=== PATIENT | female | born 1995 | race Caucasian/White ===

== ENCOUNTER 2018-01-06 10:55 | Inpatient (IN) | payer OTHER ==
[2018-01-06 11:26] VITALS: BMI 23.0
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
[2018-01-06] MEDS ORDERED: MAGNESIUM CITRATE 300 ML BOTTLE PO PRN (11:59)
[2018-01-06] MEDS ORDERED: LOPERAMIDE HCL 2 MG CAPSULE PO PRN (11:59)
[2018-01-06] MEDS ORDERED: MAGNESIUM HYDROX 2400MG/30ML ORAL SUSPENSION 30 ML CUP PO PRN (11:59)
[2018-01-06] MEDS ORDERED: guaiFENesin/D-METHORPHAN HB 10 ML UNIT-DOSE CUPS PO PRN (11:59)
[2018-01-06] MEDS ORDERED: MAG HYDROX/AL HYDROX/SIMETH 30 ML UNIT-DOSE CUP PO PRN (11:59)
[2018-01-06] MEDS ORDERED: IBUPROFEN 400 MG TABLET (FP) PO PRN (11:59)
[2018-01-06] MEDS ORDERED: MENTHOL/PHENOL 1 EACH UD MM PRN (11:59)
[2018-01-06] MEDS ORDERED: ACETAMINOPHEN 325 MG TABLET (FP) PO PRN (11:59)
[2018-01-06] MEDS ORDERED: chlordiazePOXIDE HCL 25 MG CAPSULE PO PRN (11:59)
[2018-01-06] MEDS ORDERED: P-EPHED 60MG/TRIPROLIDI 2.5MG TABLET PO PRN (11:59)
[2018-01-06] MEDS ORDERED: ALBUTEROL SO4 0.083% IH SOL 2.5 MG/3 ML VIAL.NEB. NEB PRN (12:01)
[2018-01-06] MEDS ORDERED: METHADONE HCL 10 MG TABLET (FOR DETOX USE ONLY) PO ONE ×2 (14:10→23:00)
[2018-01-06] MEDS ORDERED: chlordiazePOXIDE HCL 25 MG CAPSULE PO SCH (17:00)
--- NOTE | 2018-01-06 17:50 | PN ---
BHS Progress Note Note: pt met w/ psychiatry and requested change to Valium . Per psychiatry , change of meds recommended . d/w Psychiatrist at length re : risk vs benefit . Pt agreeable to stay in tx w/ change of meds .
--- NOTE | 2018-01-06 18:04 | CONSULT ---
[facility] Psychiatric Consult - Data Date of interview: 01/06/18 Admission source: [facility] Identifying data: First admission to [facility] for this 22 y/o female seeking detoxification treatment on for heroin,cocaine and benzodiazepine dependence (xanax). Patient is single without dependents, domiciled,self-sufficient and employed as a dancer (self report). Substance Abuse History: Discussed with the patient in this session. Ms Guevara reports an enduring history of heroin abuse (intravenous use), cocaine and xanax. Daily use for many years. Past history of two overdoses (treated with naloxone). Episodic use of crystal methamphetamine, phencyclidine, cannabis and fentanyl. Patient smokes one pack of cigarettes daily. Medical History: Bronchial asthma (history of intubation). Psychiatric History: No reported history of psychiatric hospitalizations. Patient indicates prior contacts with psychiatrists in the past. Has " no idea " about psychiatric diagnoses but she informs that " they prescribed me adderall ,ambien,klonopin and xanax but, except for xanax, I stopped taking them ". History of chronic non-adherence to referrals for psychiatric OPD care. Ms Guevara denies history of suicide attempts. Physical/Sexual Abuse/Trauma History: Patient declines to discuss this domain, in this interview. Additional Comment: Urine Drug Screen Results: [place]ADE[place]-Cocaine, OPI-Opiates, BZO- Benzodiazepines, OXY-Oxycodone, FEN-Fentanyl. Noted. Mental Status Exam - Mental Status Exam Alert and Oriented to: Time, Place, Person Cognitive Function: Good Patient Appearance: Well Groomed (medium height, thin habitus, appears stated age, pierced right nostril, loud make-up, flamboyant hairdo) Mood: Angry, Nervous, Anxious, Irritable Affect: Labile Patient Behavior: Inappropriate (on admission : as evidenced by staff report of use of profanities, yelling, shouting and pressuring nurses for medications), Fatigued, Impulsive, Talkative, Cooperative Speech Pattern: Clear, Excessive Voice Loudness: Moderately Loud (at the beginning of this interview ; toned down as examination went on) Thought Process: Goal Oriented Thought Disorder: Not Present Hallucinations: Denies Suicidal Ideation: Denies Homicidal Ideation: Denies Insight/Judgement: Poor Sleep: Poorly (patient requested trazodone because of past experience of improved sleep on that drug), Difficulty falling asleep Appetite: Good Muscle strength/Tone: Normal Gait/Station: Normal Psychiatric Findings - Problem List ([place] 1, 2,3) (1) Alcohol dependence Current Visit: Yes Status: Acute Qualifiers: Substance use status: uncomplicated Qualified Code(s): F10.20 - Alcohol dependence, uncomplicated (2) Alcohol withdrawal Current Visit: Yes Status: Acute Qualifiers: Complication of substance-induced condition: uncomplicated Qualified Code(s ): F10.230 - Alcohol dependence with withdrawal, uncomplicated (3) Cocaine dependence Current Visit: Yes Status: Acute Qualifiers: Substance use status: uncomplicated Qualified Code(s): F14.20 - Cocaine dependence, uncomplicated (4) Opioid withdrawal Current Visit: Yes Status: Acute (5) Sedative withdrawal Current Visit: Yes Status: Acute (6) Nicotine dependence Current Visit: Yes Status: Acute Qualifiers: Nicotine product type: cigarettes Substance use status: uncomplicated Qualified Code(s): F17.210 - Nicotine dependence, cigarettes, uncomplicated (7) Substance induced mood disorder Current Visit: Yes Status: Acute (8) Personality disorder, unspecified Current Visit: Yes Status: Chronic (9) Insomnia Current Visit: Yes Status: Acute - Initial Treatment Plan Initial Treatment Plan: Psychoeducation. Details of treatment plan : discussed with the patient. Unit rules + regulations are revisited with the patient as well. Ms Guevara is NOT psychotic. Currently observed outbursts simply point towards personality/character disorder - likely antisocial/borderline/ histrionic - which should be addressed with firm limit-setting + consistent redirections from the staff. Bipolar Disorder is strongly suspected (more history and collateral information still needed to corroborate that impression) . In the meantime, it is advisable to accomodate the patient's preference for diazepam instead of chlordiazepoxide (not well tolerated by the patient, as per self report). Sleep hygiene discussed. Trazodone 50 mg po hs : ordered at patient's specific request. Side effects/benefits reviewed. Consent (verbal) obtained. Detoxification initiated (case discussed, in person, with medical attending, Dr Grey). Psychotherapy : individual, supportive, group, recreational and cognitive/behavioral). Patient is encouraged to attend sessions and refrain from acting out behaviors (yelling,screaming,using profanities,fraternizing with males,gathering in cliques). Attendance to AA/NA meetings : strongly recommended to the patient. Relapse prevention revisited : patient is informed of the therapeutic virtues of rehabilitation and benefits of naltrexone (outpatient setting). Social work team will explore psychosocial issues (referral to an OPD psychiatrist is advised). Orientation to the unit ( this is her first admission to [facility]). Ms Guevara has expressed her agreement to this plan of care. Observation.
[2018-01-06] MEDS ORDERED: diazePAM 5 MG TABLET PO ONE (18:15)
[2018-01-06 18:22] LABS: URINE APPEARANCE SLCLOUDY; URINE BILIRUBIN NEGATIVE (<2.0 mg/dL); URINE COLOR YELLOW; URINE GLUCOSE (UA) NEGATIVE (NEGATIVE); URINE KETONE NEGATIVE (NEGATIVE); URINE LEUK ESTERASE 1+ (NEGATIVE); URINE NITRITE NEGATIVE (NEGATIVE); URINE PROTEIN 1+ (NEGATIVE); URINE UROBILINOGEN NEGATIVE mg/dL (0.2-1.0)
[2018-01-06 18:34] LABS: EPI CELLS MANY /HPF (FEW); URINE BACTERIA RARE /hpf (NONE SEEN); URINE MUCUS FEW
[2018-01-06] MEDS: traZODone HCL 50 MG TABLET (FP) PO SCH (22:07)
[2018-01-06] MEDS: diazePAM 5 MG TABLET PO SCH (22:07)
[2018-01-06] MEDS: THIAMINE HCL 100 MG TABLET (FP) PO SCH (22:07)
[2018-01-06] MEDS: MELATONIN 5 MG TABLETS PO PRN (22:08)
[2018-01-07] MEDS: diazePAM 5 MG TABLET PO PRN ×3 (00:50→17:34)
[2018-01-07] MEDS: diazePAM 5 MG TABLET PO SCH ×3 (06:02→22:52)
[2018-01-07] MEDS ORDERED: METHADONE HCL 10 MG TABLET (FOR DETOX USE ONLY) PO SCH (10:00)
[2018-01-07] MEDS: PRENATAL VITAMINS W/ FOLIC ACID TABLET (FP) PO SCH (10:12)
[2018-01-07 11:06] LABS: HEMATOCRIT 43.9 % (32.4-45.2); HEMOGLOBIN 14.1 GM/dL (10.7-15.3); MEAN CELL VOLUME 87.4 fl (80-96); MEAN PLT VOLUME 8.4 fl (7.5-11.1); PLATELET COUNT 300 K/MM3 (134-434); RBC 5.02 M/mm3 (3.60-5.2); WHITE BLOOD COUNT 7.2 K/mm3 (4.0-10.0)
[2018-01-07 11:33] LABS: ALBUMIN 3.6 g/dl (3.4-5.0); ALK PHOS 73 U/L (45-117); ANION GAP 8 MMOL/L (8-16); BILIRUBIN,TOTAL 0.3 mg/dL (0.2-1); BLOOD UREA NITROGEN 10 mg/dL (7-18); CALCIUM 8.8 mg/dL (8.5-10.1); CHLORIDE 107 mmol/L (98-107); CO2 26 mmol/L (21-32); CREATININE 0.9 mg/dL (0.55-1.3); GLUCOSE,RANDOM 76 mg/dL (74-106); POTASSIUM 4.3 mmol/L (3.5-5.1); SGOT/AST 15 U/L (15-37); SGPT/ALT 22 U/L (13-61); SODIUM 140 mmol/L (136-145); TOT PROT 7.7 g/dl (6.4-8.2)
--- NOTE | 2018-01-07 15:55 | PN ---
S CIWA - CIWA Score Nausea/Vomitin Muscle Tremors: 2 Anxiety: 5 Agitation: 5 Paroxysmal Sweats: 2 Orientation: 0-Oriented Tacttile Disturbances: 0-None Auditory Disturbances: 0-None Visual Disturbances: 0-None Headache: 0-None Present CIWA-Ar Total Score: 16 BHS COWS - Scale Resting Pulse: 0= [place] 80 or Below Sweatin= Chills/Flushing Restless Observation: 3= Extraneous Movement Pupil Size: 0= Normal to Room Light Bone or Joint Aches: 2= Severe Diffuse Aches Runny Nose/ Eye Tearin= Nasal Congestion GI Upset > 30mins: 0= None Tremor Observation of Outstretched Hands: 1= Tremor [place], Not Seen Yawning Observation: 1= 1-2x During Session Anxiety or Irritability: 2=Irritable/Anxious Goose Flesh Skin: 0=Smooth Skin COWS Score: 11 [facility] Progress Note (SOAP) Subjective: generalized body pain Objective: 01/07/18 15:53 Anxious restless Vital Signs Temperature 97.8 F 01/07/18 14:19 Pulse Rate 80 01/07/18 14:19 Respiratory Rate 18 01/07/18 14:19 Blood Pressure 114/59 L 01/07/18 14:19 O2 Sat by Pulse Oximetry (%) Laboratory Last Values WBC 7.2 K/mm3 (4.0-10.0) 01/07/18 08:00 RBC 5.02 M/mm3 (3.60-5.2) 01/07/18 08:00 Hgb 14.1 GM/dL (10.7-15.3) 01/07/18 08:00 Hct 43.9 % (32.4-45.2) 01/07/18 08:00 MCV 87.4 fl (80-96) 01/07/18 08:00 MCH 28.0 pg (25.7-33.7) 01/07/18 08:00 MCHC 32.0 g/dl (32.0-36.0) 01/07/18 08:00 RDW 13.0 % (11.6-15.6) 01/07/18 08:00 Plt Count 300 K/MM3 (134-434) 01/07/18 08:00 MPV 8.4 fl (7.5-11.1) 01/07/18 08:00 Sodium 140 mmol/L (136-145) 01/07/18 08:00 Potassium 4.3 mmol/L (3.5-5.1) 01/07/18 08:00 Chloride 107 mmol/L (98-107) 01/07/18 08:00 Carbon Dioxide 26 mmol/L (21-32) 01/07/18 08:00 Anion Gap 8 MMOL/L (8-16) 01/07/18 08:00 BUN 10 mg/dL (7-18) 01/07/18 08:00 Creatinine 0.9 mg/dL (0.55-1.3) 01/07/18 08:00 Creat Clearance w eGFR > 60 (>60) 01/07/18 08:00 Random Glucose 76 mg/dL (74-106) 01/07/18 08:00 Calcium 8.8 mg/dL (8.5-10.1) 01/07/18 08:00 Total Bilirubin 0.3 mg/dL (0.2-1) 01/07/18 08:00 AST 15 U/L (15-37) 01/07/18 08:00 ALT 22 U/L (13-61) 01/07/18 08:00 Alkaline Phosphatase 73 U/L (45-117) 01/07/18 08:00 Total Protein 7.7 g/dl (6.4-8.2) 01/07/18 08:00 Albumin 3.6 g/dl (3.4-5.0) 01/07/18 08:00 Urine Color Yellow 01/06/18 17:55 Urine Appearance Slcloudy 01/06/18 17:55 Urine pH 5.0 (5.0-8.0) 01/06/18 17:55 Ur Specific [place] 1.026 (1.010-1.035) 01/06/18 17:55 Urine Protein 1+ (NEGATIVE) H 01/06/18 17:55 Urine Glucose (UA) Negative (NEGATIVE) 01/06/18 17:55 Urine Ketones Negative (NEGATIVE) 01/06/18 17:55 Urine Blood Negative (NEGATIVE) 01/06/18 17:55 Urine Nitrite Negative (NEGATIVE) 01/06/18 17:55 Urine Bilirubin Negative (<2.0 mg/dL) 01/06/18 17:55 Urine Urobilinogen Negative mg/dL (0.2-1.0) 01/06/18 17:55 Ur Leukocyte Esterase 1+ (NEGATIVE) H 01/06/18 17:55 Urine WBC (Auto) 3 /hpf (3-5) 01/06/18 17:55 Urine RBC (Auto) 2 /hpf (0-3) 01/06/18 17:55 Ur Epithelial Cells Many /HPF (FEW) 01/06/18 17:55 Urine Bacteria Rare /hpf (NONE SEEN) 01/06/18 17:55 Urine Mucus Few 01/06/18 17:55 RPR Titer Nonreactive (NONREACTIVE) 01/07/18 08:00 labs noted Abnormal Urine results Assessment: 01/07/18 15:54 Withdrawal sx Plan: Continue detox Increase hydration Repeat UA
[2018-01-07] MEDS ORDERED: chlordiazePOXIDE HCL 25 MG CAPSULE PO SCH (17:00)
--- NOTE | 2018-01-07 18:11 | EKG ---
Test Reason : Blood Pressure : / mmHG Vent. Rate : 066 BPM Atrial Rate : 066 BPM P-R Int : 132 ms QRS Dur : 098 ms QT Int : 386 ms P-R-T Axes : 036 079 070 degrees QTc Int : 404 ms NORMAL SINUS RHYTHM NORMAL ECG NO PREVIOUS ECGS AVAILABLE Confirmed by PRECIOUS SINCLAIR MD ([id number]) on 01/07/2018 6:11:07 PM Referred By: Confirmed By:PRECIOUS SINCLAIR MD
[2018-01-07] MEDS: THIAMINE HCL 100 MG TABLET (FP) PO SCH (22:52)
[2018-01-07] MEDS: traZODone HCL 50 MG TABLET (FP) PO SCH (22:52)
[2018-01-08] MEDS: diazePAM 5 MG TABLET PO PRN (05:52)
[2018-01-08] MEDS ORDERED: METHADONE HCL 5 MG TABLET (FOR DETOX USE ONLY) PO SCH (10:00)
[2018-01-08 10:29] LABS: URINE APPEARANCE SLCLOUDY; URINE BILIRUBIN NEGATIVE (<2.0 mg/dL); URINE COLOR YELLOW; URINE GLUCOSE (UA) NEGATIVE (NEGATIVE); URINE KETONE NEGATIVE (NEGATIVE); URINE LEUK ESTERASE TRACE (NEGATIVE); URINE NITRITE NEGATIVE (NEGATIVE); URINE PROTEIN NEGATIVE (NEGATIVE); URINE UROBILINOGEN NEGATIVE mg/dL (0.2-1.0)
[2018-01-08] MEDS: diazePAM 5 MG TABLET PO SCH ×2 (10:33→23:04)
[2018-01-08] MEDS: PRENATAL VITAMINS W/ FOLIC ACID TABLET (FP) PO SCH (10:33)
[2018-01-08 10:35] LABS: EPI CELLS MODERATE /HPF (FEW); URINE MUCUS RARE
[2018-01-08] MEDS ORDERED: GABAPENTIN 100 MG CAPSULE (FP) PO ONE (13:57)
--- NOTE | 2018-01-08 14:46 | PN ---
S CIWA - CIWA Score Nausea/Vomitin-No Nausea/No Vomiting Muscle Tremors: 3 Anxiety: 2 Agitation: 2 Paroxysmal Sweats: No Perspiration Orientation: 0-Oriented Tacttile Disturbances: 0-None Auditory Disturbances: 0-None Visual Disturbances: 0-None Headache: 0-None Present CIWA-Ar Total Score: 7 S COWS - Scale Resting Pulse: 0= [place] 80 or Below Sweatin= Chills/Flushing Restless Observation: 0= Sits Still Pupil Size: 0= Normal to Room Light Bone or Joint Aches: 1= Mild Discomfort Runny Nose/ Eye Tearin= None GI Upset > 30mins: 0= None Tremor Observation of Outstretched Hands: 1= Tremor [place], Not Seen Yawning Observation: 0= None Anxiety or Irritability: 1=Feels Anxious/Irritable Goose Flesh Skin: 0=Smooth Skin COWS Score: 4 S Progress Note (SOAP) Subjective: Alert oriented x 3 social in day room with peers in day room [address] patient is able to connect with peers and carry conversation easily patient has good appetitie good eye contact Objective: 01/08/18 14:49 Vital Signs Temperature 97.0 F L 01/08/18 09:44 Pulse Rate 91 H 01/08/18 09:44 Respiratory Rate 18 01/08/18 09:44 Blood Pressure 124/69 01/08/18 09:44 O2 Sat by Pulse Oximetry (%) Laboratory Last Values WBC 7.2 K/mm3 (4.0-10.0) 01/07/18 08:00 RBC 5.02 M/mm3 (3.60-5.2) 01/07/18 08:00 Hgb 14.1 GM/dL (10.7-15.3) 01/07/18 08:00 Hct 43.9 % (32.4-45.2) 01/07/18 08:00 MCV 87.4 fl (80-96) 01/07/18 08:00 MCH 28.0 pg (25.7-33.7) 01/07/18 08:00 MCHC 32.0 g/dl (32.0-36.0) 01/07/18 08:00 RDW 13.0 % (11.6-15.6) 01/07/18 08:00 Plt Count 300 K/MM3 (134-434) 01/07/18 08:00 MPV 8.4 fl (7.5-11.1) 01/07/18 08:00 Sodium 140 mmol/L (136-145) 01/07/18 08:00 Potassium 4.3 mmol/L (3.5-5.1) 01/07/18 08:00 Chloride 107 mmol/L (98-107) 01/07/18 08:00 Carbon Dioxide 26 mmol/L (21-32) 01/07/18 08:00 Anion Gap 8 MMOL/L (8-16) 01/07/18 08:00 BUN 10 mg/dL (7-18) 01/07/18 08:00 Creatinine 0.9 mg/dL (0.55-1.3) 01/07/18 08:00 Creat Clearance w eGFR > 60 (>60) 01/07/18 08:00 Random Glucose 76 mg/dL (74-106) 01/07/18 08:00 Calcium 8.8 mg/dL (8.5-10.1) 01/07/18 08:00 Total Bilirubin 0.3 mg/dL (0.2-1) 01/07/18 08:00 AST 15 U/L (15-37) 01/07/18 08:00 ALT 22 U/L (13-61) 01/07/18 08:00 Alkaline Phosphatase 73 U/L (45-117) 01/07/18 08:00 Total Protein 7.7 g/dl (6.4-8.2) 01/07/18 08:00 Albumin 3.6 g/dl (3.4-5.0) 01/07/18 08:00 Urine Color Yellow 01/08/18 07:30 Urine Appearance Slcloudy 01/08/18 07:30 Urine pH 7.0 (5.0-8.0) D 01/08/18 07:30 Ur Specific [place] 1.018 (1.010-1.035) 01/08/18 07:30 Urine Protein Negative (NEGATIVE) 01/08/18 07:30 Urine Glucose (UA) Negative (NEGATIVE) 01/08/18 07:30 Urine Ketones Negative (NEGATIVE) 01/08/18 07:30 Urine Blood Negative (NEGATIVE) 01/08/18 07:30 Urine Nitrite Negative (NEGATIVE) 01/08/18 07:30 Urine Bilirubin Negative (<2.0 mg/dL) 01/08/18 07:30 Urine Urobilinogen Negative mg/dL (0.2-1.0) 01/08/18 07:30 Ur Leukocyte Esterase Trace (NEGATIVE) 01/08/18 07:30 Urine WBC (Auto) 2 /hpf (3-5) 01/08/18 07:30 Urine RBC (Auto) None /hpf (0-3) 01/08/18 07:30 Ur Epithelial Cells Moderate /HPF (FEW) 01/08/18 07:30 Urine Bacteria Rare /hpf (NONE SEEN) 01/06/18 17:55 Urine Mucus Rare 01/08/18 07:30 RPR Titer Nonreactive (NONREACTIVE) 01/07/18 08:00 lab noted Assessment: 01/08/18 14:50 mild withdrawal sx Plan: medically supervised detox
[2018-01-08] MEDS ORDERED: chlordiazePOXIDE 5 MG CAPSULE PO SCH (17:00)
--- NOTE | 2018-01-08 18:09 | PN ---
S Progress Note Note: Pt transferred to [facility] ED for verbalization of SI. Pt states she is angry, wants a change of her meds and will kill herself if not given. Report given to MD Messer at the ED, pt transported by [facility].
[2018-01-08] MEDS: traZODone HCL 50 MG TABLET (FP) PO SCH (23:04)
[2018-01-08] MEDS: THIAMINE HCL 100 MG TABLET (FP) PO SCH (23:04)
[2018-01-09] MEDS: MELATONIN 5 MG TABLETS PO PRN ×2 (03:11→22:37)
[2018-01-09] MEDS: diazePAM 5 MG TABLET PO PRN ×3 (03:11→15:02)
[2018-01-09] MEDS ORDERED: METHADONE HCL 10 MG TABLET (FOR DETOX USE ONLY) PO SCH (10:00)
[2018-01-09] MEDS: PRENATAL VITAMINS W/ FOLIC ACID TABLET (FP) PO SCH (10:22)
[2018-01-09] MEDS: diazePAM 5 MG TABLET PO SCH ×2 (10:23→22:36)
[2018-01-09] MEDS ORDERED: IBUPROFEN 600 MG TABLET (FP) PO PRN (11:38)
--- NOTE | 2018-01-09 11:45 | PN ---
BHS Progress Note (SOAP) Subjective: achy bones irritable sweats I need my gabapentin psych ordered Objective: 01/09/18 11:44 Vital Signs Temperature 98.1 F 01/09/18 09:45 Pulse Rate 88 01/09/18 09:45 Respiratory Rate 18 01/09/18 09:45 Blood Pressure 134/66 01/09/18 09:45 O2 Sat by Pulse Oximetry (%) aaox3 ambulating no acute distress Assessment: 01/09/18 11:44 withdrawal sx Plan: psych order gabapentin 100mg tid ordered d/c in am
[2018-01-09] MEDS: GABAPENTIN 100 MG CAPSULE (FP) PO SCH ×2 (13:10→22:36)
[2018-01-09] MEDS ORDERED: chlordiazePOXIDE HCL 10 MG CAPSULE PO SCH (17:00)
[2018-01-09] MEDS ORDERED: FLUCONAZOLE 100 MG TABLET (UD) PO ONE (20:25)
--- NOTE | 2018-01-09 20:27 | PN ---
BHS Progress Note Note: c/o yellowish vaginal discharge w/ itching x 2 days. Denies burning or pain w/ urination. Vital Signs 01/09/18 01/09/18 14:32 17:20 Temperature 98.2 F 97.9 F Pulse Rate 82 89 Respiratory 18 18 Rate Blood Pressure 119/69 104/54 L Plan: Diflucan x 1. Follow-up w/ PCP upon discharge.
[2018-01-09] MEDS: THIAMINE HCL 100 MG TABLET (FP) PO SCH (22:35)
[2018-01-09] MEDS: traZODone HCL 50 MG TABLET (FP) PO SCH (22:36)
[2018-01-10] MEDS ORDERED: METHADONE HCL 5 MG TABLET (FOR DETOX USE ONLY) PO SCH (06:00)
[2018-01-10] MEDS: GABAPENTIN 100 MG CAPSULE (FP) PO SCH (06:20)
[2018-01-10 06:37] VITALS: BP 122/71; PULSE 67; TEMP 97.3
[2018-01-10] MEDS ORDERED: diazePAM 5 MG TABLET PO SCH (10:00)
== END 2018-01-10 07:05 | disposition home or self-care (01) | DRG 773 ==
LOC: YASAS 10:55 → Y6N 13:34
PROC: HZ2ZZZZ Detoxification Services for Substance Abuse Treatment (ICD-10-PCS; principal; 2018-01-06)
DX: F11.23 Opioid dependence with withdrawal (principal); F10.230 Alcohol dependence with withdrawal, uncomplicated; F13.230 Sedative, hypnotic or anxiolytic dependence with withdrawal, uncomplicated; F14.20 Cocaine dependence, uncomplicated; F17.210 Nicotine dependence, cigarettes, uncomplicated; F19.24 Other psychoactive substance dependence with psychoactive substance-induced mood disorder; F60.9 Personality disorder, unspecified; R45.851 Suicidal ideations; J45.909 Unspecified asthma, uncomplicated; R82.90 Unspecified abnormal findings in urine; G47.00 Insomnia, unspecified; R01.1 Cardiac murmur, unspecified; N89.8 Other specified noninflammatory disorders of vagina
CPT/HCPCS: 36415; 80053; 81003; 81015; 85027; 86593; 93005; 93010; 94640

== ENCOUNTER 2019-04-09 15:05 | Inpatient (IN) | payer OTHER ==
[2019-04-09 16:33] VITALS: BMI 32.9
--- NOTE | 2019-04-09 17:40 | HP ---
"CIWA Score Nausea/Vomitin-No Nausea/No Vomiting Muscle Tremors: None Anxiety: 4-Mod. Anxious/Guarded Agitation: 2 Paroxysmal Sweats: No Perspiration Orientation: 1-Uncertain about Date Tacttile Disturbances: 1-Very Mild Itch/Numbness Auditory Disturbances: 0-None Visual Disturbances: 2-Mild Sensitivity Headache: 2-Mild CIWA-Ar Total Score: 12 - Admission Criteria OASAS Guidelines: Admission for Medically Managed Detox: Requires at least one of the followin. CIWA greater than 12 2. Seizures within the past 24 hours 3. Delirium tremens within the past 24 hours 4. Hallucinations within the past 24 hours 5. Acute intervention needed for co occurring medical disorder 6. Acute intervention needed for co occurring psychiatric disorder 7. Severe withdrawal that cannot be handled at a lower level of care (continued vomiting, continued diarrhea, abnormal vital signs) requiring intravenous medication and/or fluids 8. Admitting History and Physical - Smoking History Smoking history: Never smoked Have you smoked in the past 12 months: No Aproximately how many cigarettes per day: 10 - Alcohol/Substance Use Hx Alcohol Use: No Admission ROS [facility] Allergies/Adverse Reactions: Allergies Allergy/AdvReac Type Severity Reaction Status Date / Time Penicillins Allergy Severe Hives Verified 04/09/19 16:22 History of Present Illness: This report was requested by: Grace Grey | Reference #: [id number] Others' Prescriptions Patient Name: Flavia Guevara Date: 1995 Address: [address] [place] [address] Sex: Female Rx Written Rx Dispensed Drug Quantity Days Supply Prescriber Name 08/09/2018 08/09/2018 hydrocodone-acetaminophen 5-325 mg tablet 16 3 Kamila Benton pt here requesting detox from etoh and xanax use , current daily use xanax 2-4 sticks /day x 2 mg , +IV use , + re-using needles , + abscess most recently now L elbow started taking someone elses's Clindamycin 4 days ago , states swelling now much better . MMTP -25 mg ( unverified as of time of admission ) luis angel : 0.00 Etoh use :1/2 bottle /day , reports tremors if not drinking , denies seizures , + blackouts , denies falls / injuries to self while intoxicated . does not drive . tobacco : 1/2 ppd , denies NRT . PMHX : asthma since childhood , hospitalized ,intubated 2 years ago in medically induced coma in winter 2015 at [facility] . PShx : denies Psych : depression , anxiety , bipolar d/o , ADD upt neg LMP Mar 2019 Exam Limitations: Clinical Condition - Ebola screening Have you traveled outside of the country in the last 21 days: No (N) Have you had contact with anyone from an Ebola affected area: No Do you have a fever: No - Review of Systems Constitutional: No Symptoms Reported EENT: reports: No Symptoms Reported Respiratory: reports: See HPI Cardiac: reports: No Symptoms Reported GI: reports: No Symptoms Reported : reports: Frequency Musculoskeletal: reports: Back Pain (chronic) Integumentary: reports: See HPI, Erythema (left forearm/ elbow , right leg) Neuro: reports: See HPI, Headache, Unsteady Gait Endocrine: reports: No Symptoms Reported Psychiatric: reports: Agitated, Anxious, Depressed, Disorientated Patient History - Patient Medical History Hx Asthma: Yes Hx Chronic Obstructive Pulmonary Disease (COPD): No Hx Cardiac Disorders: No Hx Congestive Heart Failure: No Hx Hypertension: No Hx Seizures: No Hx Diabetes: No Hx Gastrointestinal Disorders: No Hx Genitourinary Disorders: No Hx Sexually Transmitted Disorders: Yes (chlamydia) Hx Renal Disease (ESRD): No Hx Depression: Yes Hx Suicide Attempt: No Hx Schizophrenia: No - Patient Surgical History Past Surgical History: No Hx Neurologic Surgery: No Hx Cataract Extraction: No Hx Cardiac Surgery: No Hx Lung Surgery: No Hx Breast Surgery: No Hx Breast Biopsy: No Hx Abdominal Surgery: No Hx Appendectomy: No Hx Cholecystectomy: No Hx Genitourinary Surgery: No Hx Section: No Hx Orthopedic Surgery: No Anesthesia Reaction: No - PPD History Date: 01/08/18 - Smoking Cessation Smoking history: Never smoked Have you smoked in the past 12 months: No Aproximately how many cigarettes per day: 10 Hx Chewing Tobacco Use: No - Substances abused Alcohol Substance route: Oral Frequency: Daily Amount used: 1/2 BOTTLE OF VODKA Age of first use: 13 Date of last use: 04/08/19 Heroin Substance route: Injection Frequency: Daily Amount used: 4-6 BAGS A DAY Age of first use: 22 Date of last use: 04/09/19 Alprazolam (Xanax) Substance route: Oral Frequency: Daily Amount used: 1 BAR A DAY Age of first use: 16 Date of last use: 04/09/19 Admission Physical Exam BHS - Vital Signs Vital Signs: Vital Signs - 24 hr 04/09/19 16:15 Temperature 97.2 F L Pulse Rate 94 H Respiratory 18 Rate Blood Pressure 130/72 - Physical General Appearance: Yes: Mild Distress, Intoxicated, Anxious HEENTM: Yes: EOMI, Hearing grossly Normal, Normocephalic, Normal Voice Respiratory: Yes: Chest Non-Tender, Lungs Clear, Normal Breath Sounds, No Respiratory Distress, No Accessory Muscle Use Neck: Yes: No masses,lesions,Nodules, Trachea in good position Cardiology: Yes: Regular Rhythm, Regular Rate, S1, S2 Abdominal: Yes: Normal Bowel Sounds, Non Tender, Soft Extremities: Yes: Normal Inspection, Normal Range of Motion, Non-Tender Neurological: Yes: Alert, Motor Strength 5/5, Disoriented, Depressed Affect Integumentary: Yes: Warm, Erythema (left elbow , right lateral thigh w/ mild edema) - Diagnostic (1) Alcohol dependence Current Visit: Yes Status: Chronic Qualifiers: Substance use status: uncomplicated Qualified Code(s): F10.20 - Alcohol dependence, uncomplicated (2) Sedative withdrawal Current Visit: Yes Status: Chronic (3) Nicotine dependence Current Visit: Yes Status: Chronic Qualifiers: Nicotine product type: cigarettes Substance use status: uncomplicated Qualified Code(s): F17.210 - Nicotine dependence, cigarettes, uncomplicated Breathalyzer - Breathalyzer Breathalyzer: 0 Urine Drug Screen - Test Device Lot number: [id number] Expiration date: 10/17/20 - Control Is test valid?: Yes - Results Drug screen NEGATIVE: No Urine drug screen results: MOP-Opiates, MTD-Methadone, BZO-Benzodiazepines Inpatient Rehab Admission - Rehab Decision to Admit Inpatient rehab admission?: No"
[2019-04-09] MEDS ORDERED: ALBUTEROL SO4 HFA INHALER IH PRN (18:00)
[2019-04-09] MEDS ORDERED: ALBUTEROL SO4 2.5/IPRATROPIUM 0.5 INH SOL 3 ML VIAL.NEB. NEB PRN (18:02)
[2019-04-09] MEDS ORDERED: hydrOXYzine PAMOATE 25 MG CAPSULE (FP) PO PRN (18:08)
[2019-04-09] MEDS ORDERED: MAGNESIUM HYDROX 2400MG/30ML ORAL SUSPENSION 30 ML CUP PO PRN (18:08)
[2019-04-09] MEDS ORDERED: MAG HYDROX/AL HYDROX/SIMETH 30 ML UNIT-DOSE CUP PO PRN (18:08)
[2019-04-09] MEDS ORDERED: MAGNESIUM CITRATE 300 ML BOTTLE PO PRN (18:08)
[2019-04-09] MEDS ORDERED: IBUPROFEN 400 MG TABLET (FP) PO PRN (18:08)
[2019-04-09] MEDS ORDERED: METHOCARBAMOL 500 MG TABLET PO PRN (18:08)
[2019-04-09] MEDS ORDERED: MENTHOL/PHENOL 1 EACH UD MM PRN (18:08)
[2019-04-09] MEDS ORDERED: ACETAMINOPHEN 325 MG TABLET (FP) PO PRN ×2 (18:08)
[2019-04-09] MEDS ORDERED: BISMUTH SUBSALICYLATE 524 MG/30 ML UD PO PRN (18:08)
[2019-04-09] MEDS ORDERED: chlordiazePOXIDE HCL 25 MG CAPSULE PO PRN (18:17)
[2019-04-09] MEDS: chlordiazePOXIDE HCL 25 MG CAPSULE PO SCH ×2 (18:52→22:07)
[2019-04-09] MEDS: CLINDAMYCIN HCL 150 MG CAPSULE (FP) PO SCH ×2 (18:53→22:08)
[2019-04-09] MEDS ORDERED: guaiFENesin 200 MG/10 ML 10 ML UNIT-DOSE CUPS PO PRN (19:29)
[2019-04-09] MEDS: PATIENT'S OWN MEDICATION (NON-FORMULARY) (Fluticasone Propion/Salmeterol [Wixela 500-50 In PO SCH (22:07)
[2019-04-09] MEDS: THIAMINE HCL 100 MG TABLET (FP) PO SCH (22:07)
[2019-04-09] MEDS: MELATONIN 5 MG TABLETS PO PRN (22:08)
[2019-04-10] MEDS: CLINDAMYCIN HCL 150 MG CAPSULE (FP) PO SCH ×3 (05:39→22:05)
[2019-04-10] MEDS: chlordiazePOXIDE HCL 25 MG CAPSULE PO SCH ×4 (05:39→22:05)
[2019-04-10] MEDS ORDERED: METHADONE HCL 10 MG TABLET PO ONE (07:55)
[2019-04-10] MEDS ORDERED: METHADONE 20 MG, METHADONE 5 MG PO ONE (08:10)
--- NOTE | 2019-04-10 08:18 | CONSULT ---
[facility] Psychiatric Consult - Data Date of interview: 04/10/19 Admission source: Self-referred Identifying data: Ms Guevara is a 23 years old single female, unemployed receiving , domiciled seeking detox treatment for alcohol, opioid and benzodiazepine Substance Abuse History: Reports history of alcohol, heroin and xanax use. Refer to addiction counselor's summary for further information Medical History: Significant for bronchial asthma and history of treatment for chlamydia Psychiatric History: Patient is a poor historian, more invested in medication seeking. She denies previous psychiatric hospitalization or suicidal attempt. However, she acknowledges psychiatric contacts in the past for treatment of ADHD , Bipolar Disorder. Claims to have received treatment with Adderall, Lexapro, Klonopin and Xanax. Reports that she is not currently affiliated with [facility] care nor taking any medications. During her only admission to this facility, she was seen by Dr Hare and she was prescribed Trazadone 50 mg po HS. At present, denies experiencing psychotic, manic symptoms, S/H ideations. However, reports feeling depressed, anxious and sleeping poorly. Requests medications for anxiety and sleep Physical/Sexual Abuse/Trauma History: This topic was not addressed Mental Status Exam - Mental Status Exam Alert and Oriented to: Time, Place, Person Cognitive Function: Fair Patient Appearance: Well Groomed Mood: Depressed, Anxious Affect: Appropriate Patient Behavior: Cooperative Speech Pattern: Clear Voice Loudness: Normal Thought Process: Intact, Goal Oriented Hallucinations: Denies Suicidal Ideation: Denies Homicidal Ideation: Denies Insight/Judgement: Poor Sleep: Poorly Appetite: Good Muscle strength/Tone: Normal Gait/Station: Normal Psychiatric Findings - Problem List ([place] 1, 2,3) (1) Mood disorder Current Visit: Yes Status: Chronic (2) Bipolar disorder Current Visit: Yes Status: Ruled-out (3) ADHD (attention deficit hyperactivity disorder) Current Visit: Yes Status: Ruled-out (4) Substance induced mood disorder Current Visit: Yes Status: Acute (5) Substance-induced sleep disorder Current Visit: Yes Status: Acute (6) Alcohol dependence with uncomplicated intoxication Current Visit: Yes Status: Acute (7) Uncomplicated opioid dependence Current Visit: Yes Status: Acute (8) Sedative, hypnotic or anxiolytic dependence with withdrawal, uncomplicated Current Visit: Yes Status: Acute (9) Nicotine dependence Current Visit: Yes Status: Chronic (10) Bronchial asthma Current Visit: Yes Status: Chronic - Initial Treatment Plan Initial Treatment Plan: 1) Start Trazadone 50 mg po HS. 2) Continue inpatient detoxification
[2019-04-10] MEDS ORDERED: METHADONE HCL 10 MG TABLET ONE (09:05)
[2019-04-10] MEDS ORDERED: METHADONE HCL 5 MG TABLET ONE (09:06)
[2019-04-10] MEDS ORDERED: PRENATAL VITAMINS W/ FOLIC ACID TABLET (FP) PO SCH (10:00)
[2019-04-10] MEDS: PATIENT'S OWN MEDICATION (NON-FORMULARY) (Fluticasone Propion/Salmeterol [Wixela 500-50 In PO SCH ×2 (10:24→22:06)
[2019-04-10] MEDS: MONTELUKAST NA 10 MG TABLET PO SCH ×2 (10:24→22:05)
[2019-04-10] MEDS ORDERED: METHOCARBAMOL 750 MG TAB PO PRN (10:44)
[2019-04-10] MEDS ORDERED: IBUPROFEN 600 MG TABLET (FP) PO PRN (10:44)
--- NOTE | 2019-04-10 10:44 | PN ---
S CIWA - CIWA Score Nausea/Vomitin-No Nausea/No Vomiting Muscle Tremors: 3 Anxiety: 3 Agitation: 3 Paroxysmal Sweats: 3 Orientation: 0-Oriented Tacttile Disturbances: 0-None Auditory Disturbances: 0-None Visual Disturbances: 0-None Headache: 0-None Present CIWA-Ar Total Score: 12 BHS Progress Note (SOAP) Subjective: irritable restless body aches agitation interrupted sleep muscle aches/spasms Objective: 04/10/19 10:43 Vital Signs Temperature 98.2 F 04/10/19 09:36 Pulse Rate 87 04/10/19 09:36 Respiratory Rate 18 04/10/19 09:36 Blood Pressure 127/76 04/10/19 09:36 O2 Sat by Pulse Oximetry (%) labs pending aaox3 ambulating no acute distress Assessment: 04/10/19 10:59 withdrawals Plan: continue detox visitril 50mg prn roboxin 750mg prn increase fluids pending lab results
[2019-04-10] MEDS ORDERED: hydrOXYzine PAMOATE 50 MG CAPSULE (FP) PO PRN (11:00)
[2019-04-10] MEDS ORDERED: NICOTINE POLACRILEX 4 MG GUM BUC PRN (14:38)
[2019-04-10] MEDS ORDERED: NICOTINE 21 MG/24 HOURS TOPICAL PATCH TD SCH (14:45)
[2019-04-10] MEDS ORDERED: traZODone HCL 50 MG TABLET (FP) PO SCH (22:00)
[2019-04-10] MEDS: THIAMINE HCL 100 MG TABLET (FP) PO SCH (22:06)
[2019-04-10] MEDS: MELATONIN 5 MG TABLETS PO PRN (22:06)
[2019-04-11] MEDS ORDERED: METHADONE HCL 10 MG TABLET ONE (04:48)
[2019-04-11] MEDS ORDERED: METHADONE HCL 5 MG TABLET ONE (04:48)
[2019-04-11] MEDS ORDERED: chlordiazePOXIDE HCL 25 MG CAPSULE PO SCH (05:00)
[2019-04-11] MEDS ORDERED: METHADONE 20 MG, METHADONE 5 MG PO SCH (06:00)
[2019-04-11] MEDS ORDERED: METHADONE HCL 40 MG DISPERSABLE TABLET PO SCH (06:00)
[2019-04-11] MEDS: CLINDAMYCIN HCL 150 MG CAPSULE (FP) PO SCH (06:05)
--- NOTE | 2019-04-11 10:20 | DS ---
[facility] Detox Discharge Summary Admission Date: 04/09/19 Discharge Date: 04/11/19 - History Present History: Alcohol Dependence, Sedative Dependence - Physical Exam Results Vital Signs: Vital Signs Temperature 96.6 F L 04/11/19 06:57 Pulse Rate 76 04/11/19 06:57 Respiratory Rate 16 04/11/19 06:57 Blood Pressure 111/62 04/11/19 06:57 O2 Sat by Pulse Oximetry (%) - Treatment Hospital Course: Detox Protocol Followed - Medication Discharge Medications: Ambulatory Orders Albuterol Sulfate Inhaler - [Ventolin Hfa Inhaler -] 2 inh PO Q4H PRN 01/06/18 Fluticasone Propion/Salmeterol [Wixela 500-50 Inhub] 1 inhaler PO BID 04/05/19 Montelukast Sodium [Singulair] 10 mg PO HS 04/05/19 Clindamycin [Cleocin -] 300 mg PO TID 04/09/19 - Diagnosis (1) Alcohol dependence with uncomplicated intoxication Current Visit: Yes Status: Chronic (2) Sedative, hypnotic or anxiolytic dependence with withdrawal, uncomplicated Current Visit: Yes Status: Chronic (3) Bronchial asthma Current Visit: Yes Status: Chronic Qualifiers: Asthma severity: mild Asthma persistence: intermittent (4) Nicotine dependence Current Visit: Yes Status: Chronic Qualifiers: Nicotine product type: cigarettes Substance use status: uncomplicated Qualified Code(s): F17.210 - Nicotine dependence, cigarettes, uncomplicated (5) Bipolar disorder Current Visit: Yes Status: Chronic Qualifiers: Active/Remission status: remission status unspecified Qualified Code(s): F31.9 - Bipolar disorder, unspecified (6) Cardiac abnormality Current Visit: No Status: Chronic (7) Abscess of bursa of left elbow Current Visit: Yes Status: Acute - AMA Did Patient Leave Against Medical Advice: Yes (States she is uncomfortable in detox, wants out. )
[2019-04-11 10:53] VITALS: BP 122/77; PULSE 78; TEMP 97.9
[2019-04-11 12:18] LABS: HEMATOCRIT 39.5 % (32.4-45.2); HEMOGLOBIN 13.4 GM/dL (10.7-15.3); MCH 30.3 pg (25.7-33.7); MCHC 33.8 g/dl (32.0-36.0); MEAN CELL VOLUME 89.6 fl (80-96); MEAN PLT VOLUME 8.2 fl (7.5-11.1); PLATELET COUNT 283 K/MM3 (134-434); RBC 4.41 M/mm3 (3.60-5.2); RDW 12.3 % (11.6-15.6); WHITE BLOOD COUNT 7.7 K/mm3 (4.0-10.0)
[2019-04-11 12:46] LABS: ALBUMIN 3.6 g/dl (3.4-5.0); BILIRUBIN,TOTAL 0.4 mg/dL (0.2-1); BLOOD UREA NITROGEN 11.2 mg/dL (7-18); CALCIUM 8.8 mg/dL (8.5-10.1); CREATININE 0.9 mg/dL (0.55-1.3); POTASSIUM 4.3 mmol/L (3.5-5.1)
[2019-04-12] MEDS ORDERED: chlordiazePOXIDE HCL 10 MG CAPSULE PO PRN
[2019-04-12] MEDS ORDERED: chlordiazePOXIDE HCL 10 MG CAPSULE PO SCH (05:00)
[2019-04-13] MEDS ORDERED: chlordiazePOXIDE HCL 10 MG CAPSULE PO SCH (05:00)
[2019-04-14] MEDS ORDERED: chlordiazePOXIDE HCL 10 MG CAPSULE PO ONE (05:00)
== END 2019-04-11 10:00 | disposition left against medical advice (07) | DRG 770 ==
LOC: YASAS 15:05 → Y6N 18:12
PROVIDERS: ADMIT Allergy & Immunology; ATTEND Allergy & Immunology
PROC: HZ2ZZZZ Detoxification Services for Substance Abuse Treatment (ICD-10-PCS; principal; 2019-04-09)
DX: F10.230 Alcohol dependence with withdrawal, uncomplicated (principal); F13.230 Sedative, hypnotic or anxiolytic dependence with withdrawal, uncomplicated; F11.20 Opioid dependence, uncomplicated; F17.210 Nicotine dependence, cigarettes, uncomplicated; F19.282 Other psychoactive substance dependence with psychoactive substance-induced sleep disorder; F19.24 Other psychoactive substance dependence with psychoactive substance-induced mood disorder; F31.9 Bipolar disorder, unspecified; J45.20 Mild intermittent asthma, uncomplicated; M71.022 Abscess of bursa, left elbow; Q24.9 Congenital malformation of heart, unspecified; Z88.0 Allergy status to penicillin
CPT/HCPCS: 36415; 80053; 81025; 85027; 86593

== ENCOUNTER 2021-05-20 10:32 | Emergency (ER) | payer OTHER ==
[2021-05-20 10:43] VITALS: BP 127/79; PULSE 73; TEMP 98; BMI 23.5
== END 2021-05-20 12:02 | disposition home or self-care (01) ==
LOC: JERFT 10:32
DX: L03.114 Cellulitis of left upper limb (principal); F11.20 Opioid dependence, uncomplicated
CPT/HCPCS: 99283-25

== ENCOUNTER 2024-05-07 14:53 | Emergency (ER) | payer OTHER ==
[2024-05-07 15:12] VITALS: BMI 21.4
[2024-05-07 18:07] LABS: BASO % 0.4 % (0-2.0); EOS % 1.9 % (0-4.5); HEMATOCRIT 31.5 % (32.4-45.2); HEMOGLOBIN 10.1 GM/dL (10.7-15.3); LYMPH % 12.7 % (8-40); MCHC 32.1 g/dl (32.0-36.0); MEAN CELL VOLUME 80.9 fl (80-96); MEAN PLT VOLUME 8.1 fl (7.5-11.1); MONO % 10.4 % (3.8-10.2); NEUT % 74.6 % (42.8-82.8); PLATELET COUNT 303 10^3/uL (134-434); RBC 3.89 M/mm3 (3.60-5.2); RDW 15.8 % (11.6-15.6); WHITE BLOOD COUNT 10.9 K/mm3 (4.0-10.0)
[2024-05-07 18:19] LABS: INR 1.02 (0.83-1.09); PROTHROMBIN TIME (PATIENT) 11.2 SEC (9.7-13.0)
[2024-05-07 18:21] LABS: ACTIVATED PTT 27.3 SECONDS (25.2-36.5)
[2024-05-07] MEDS ORDERED: ACETAMINOPHEN INJECTION 100 ML ONE (18:46)
[2024-05-07] MEDS ORDERED: ALBUTEROL SO4 2.5/IPRATROPIUM 0.5 INH SOL 3 ML VIAL.NEB. NEB ONE (18:46)
[2024-05-07] MEDS: ACETAMINOPHEN 1000 MG/100 ML BAG IVPB ONE (19:03)
[2024-05-07] MEDS: SODIUM CHLORIDE 1,000 ML IV STA (19:03)
[2024-05-07] MEDS: ALBUTEROL SO4 2.5/IPRATROPIUM 0.5 INH SOL 3 ML VIAL.NEB. NEB SCH (19:03)
[2024-05-07 19:19] LABS: POTASSIUM 4.1 mmol/L (3.5-5.1)
[2024-05-07 19:21] LABS: CALCIUM 8.7 mg/dL (8.5-10.1)
[2024-05-07 19:22] LABS: ALBUMIN 4.2 g/dl (3.4-5.0); BLOOD UREA NITROGEN 21.2 mg/dL (7-18)
[2024-05-07 19:25] LABS: CREATININE 1.1 mg/dL (0.55-1.3)
[2024-05-07 19:27] LABS: BILIRUBIN,TOTAL 0.5 mg/dL (0.2-1)
[2024-05-07 19:32] LABS: HIV INTERPRETATION NEGATIVE (NEGATIVE)
[2024-05-07 19:38] VITALS: TEMP 97.8
[2024-05-07] MEDS ORDERED: ASPIRIN 81 MG CHEWABLE TABLETS ONE (20:17)
[2024-05-07] MEDS: ASPIRIN 81 MG CHEWABLE TABLETS PO ONE (20:18)
[2024-05-07 20:19] VITALS: BP 133/70; PULSE 91; RESP 16
== END 2024-05-07 20:22 | disposition short-term general hospital (02) ==
LOC: JER 14:53
PROC: 3E033NZ Introduction of Analgesics, Hypnotics, Sedatives into Peripheral Vein, Percutaneous Approach (ICD-10-PCS; principal; 2024-05-07)
PROC: 3E0337Z Introduction of Electrolytic and Water Balance Substance into Peripheral Vein, Percutaneous Approach (ICD-10-PCS; 2024-05-07)
PROC: 3E0F7GC Introduction of Other Therapeutic Substance into Respiratory Tract, Via Natural or Artificial Opening (ICD-10-PCS; 2024-05-07)
DX: R79.1 Abnormal coagulation profile (principal); R07.89 Other chest pain; R06.02 Shortness of breath; F41.9 Anxiety disorder, unspecified; Z20.822 Contact with and (suspected) exposure to COVID-19
CPT/HCPCS: 0241U-QW; 36415; 71046-TC-FY; 80053; 83880; 84484; 84703; 85025; 85379; 85610; 85651; 85730; 86140; 86803; 87040; 87389; 87651; 93005; 93010; 99285-25; J0131

== ENCOUNTER 2024-05-16 09:36 | Inpatient (IN) | payer OTHER ==
[2024-05-16 10:10] VITALS: BMI 20.5
[2024-05-16] MEDS ORDERED: MAGNESIUM HYDROX 2400MG/30ML ORAL SUSPENSION 30 ML CUP PO PRN (10:51)
[2024-05-16] MEDS ORDERED: NICOTINE POLACRILEX 2 MG LOZENGE BC PRN (10:51)
[2024-05-16] MEDS ORDERED: DICYCLOMINE HCL 10 MG CAPSULE PO PRN (10:51)
[2024-05-16] MEDS ORDERED: LOPERAMIDE HCL 2 MG CAPSULE PO PRN (10:51)
[2024-05-16] MEDS ORDERED: guaiFENesin 600 MG TABLET.ER (FP) PO PRN (10:51)
[2024-05-16] MEDS ORDERED: NICOTINE POLACRILEX 2 MG GUM BUC PRN (10:51)
[2024-05-16] MEDS ORDERED: POLYETHYLENE GLYCOL (HEALTHYLAX) 3350 17 GM PACKET PO PRN (10:51)
[2024-05-16] MEDS ORDERED: NALOXONE (NARCAN) HCL 4 MG/0.1 ML SPRAY NS PRN (10:51)
[2024-05-16] MEDS ORDERED: BENZONATATE 200 MG CAPSULE PO PRN (10:51)
[2024-05-16] MEDS ORDERED: BENZOCAINE/MENTHOL (CHLORASEPTIC ) LOZENGE MM PRN (10:51)
[2024-05-16] MEDS ORDERED: diazePAM 5 MG TABLET ONE (11:19)
[2024-05-16] MEDS: ONDANSETRON *ODT* 4 MG TABLET SL PRN (11:23)
[2024-05-16] MEDS ORDERED: ONDANSETRON *ODT* 4 MG TABLET ONE (11:23)
[2024-05-16] MEDS: diazePAM 5 MG TABLET PO SCH (11:44)
[2024-05-16] MEDS: METHOCARBAMOL 500 MG TABLET PO PRN (12:42)
[2024-05-16] MEDS: ALBUTEROL SO4 HFA INHALER IH PRN (12:43)
[2024-05-16] MEDS: MAG HYDROX/AL HYDROX/SIMETH 30 ML UNIT-DOSE CUP PO PRN (15:29)
[2024-05-16] MEDS: ACETAMINOPHEN 325 MG TABLET (FP) PO PRN (17:22)
[2024-05-16] MEDS: BISMUTH SUBSALICYLATE 262 MG/15 ML BTL PO PRN (17:30)
[2024-05-16] MEDS: THIAMINE 100 MG TABLET PO SCH (22:11)
[2024-05-16] MEDS: MELATONIN 5 MG TABLETS PO SCH (22:11)
[2024-05-17] MEDS ORDERED: methaDONE HCL 40 MG DISPERSABLE TABLET PO SCH ×2 (06:00)
[2024-05-17] MEDS: PRENATAL VITAMINS W/ FOLIC ACID TABLET (FP) PO SCH (09:55)
[2024-05-17] MEDS: IBUPROFEN 600 MG TABLET (FP) PO PRN (09:56)
[2024-05-17] MEDS: LIDOCAINE 5% TOPICAL PATCH TP SCH (10:53)
[2024-05-17] MEDS: ACETAMINOPHEN 325 MG TABLET (FP) PO PRN (12:02)
[2024-05-17] MEDS: METHYL SALICYLATE/MENTHOL 30 GM TUBE TP SCH (22:13)
[2024-05-17] MEDS: LIDOCAINE PATCH REMOVAL MC SCH (22:16)
[2024-05-17] MEDS: traZODone HCL 50 MG TABLET (FP) PO ONE (22:52)
[2024-05-18] MEDS: IBUPROFEN 400 MG TABLET (FP) PO PRN (01:37)
[2024-05-18] MEDS: diazePAM 5 MG TABLET PO SCH (05:52)
[2024-05-18] MEDS ORDERED: methaDONE HCL 10 MG TABLET PO ONE (08:19)
[2024-05-18] MEDS: cloNIDine HCL 0.1 MG TABLET PO PRN (08:54)
[2024-05-18] MEDS: methaDONE 80 MG, methaDONE 10 MG PO ONE (08:54)
[2024-05-18] MEDS ORDERED: methaDONE 80 MG, methaDONE 10 MG PO SCH (10:00)
[2024-05-18] MEDS ORDERED: methaDONE HCL 40 MG DISPERSABLE TABLET PO SCH (10:00)
[2024-05-18] MEDS: diazePAM 5 MG TABLET PO PRN (17:01)
[2024-05-19] MEDS: diazePAM 5 MG TABLET PO SCH (05:46)
[2024-05-19] MEDS ORDERED: methaDONE HCL 10 MG TABLET PO SCH (10:30)
[2024-05-19] MEDS: methaDONE 80 MG, methaDONE 10 MG PO SCH (10:44)
[2024-05-20] MEDS: diazePAM 5 MG TABLET PO ONE (05:26)
[2024-05-20 09:34] VITALS: BP 127/73; PULSE 100; RESP 16; TEMP 97.1
== END 2024-05-20 01:00 | disposition home or self-care (01) | DRG 773 ==
LOC: YASAS 09:36 → Y6N 11:26
PROVIDERS: ADMIT Allergy & Immunology; ATTEND Allergy & Immunology
PROC: HZ2ZZZZ Detoxification Services for Substance Abuse Treatment (ICD-10-PCS; principal; 2024-05-16)
DX: F11.23 Opioid dependence with withdrawal (principal); F13.230 Sedative, hypnotic or anxiolytic dependence with withdrawal, uncomplicated; F14.20 Cocaine dependence, uncomplicated; F17.290 Nicotine dependence, other tobacco product, uncomplicated; F19.282 Other psychoactive substance dependence with psychoactive substance-induced sleep disorder; F19.280 Other psychoactive substance dependence with psychoactive substance-induced anxiety disorder; F19.24 Other psychoactive substance dependence with psychoactive substance-induced mood disorder; J45.20 Mild intermittent asthma, uncomplicated; Z88.0 Allergy status to penicillin
CPT/HCPCS: 80305; 80307; 81025; 93005; 93010; Q0162